=== PATIENT | male | born 1985 | race Two or more races ===

== ENCOUNTER 2020-08-29 01:44 | Emergency (ER) | payer OTHER ==
[~2020-08-29] VITALS: Ht 172.7 cm; Wt 79.8 kg
[2020-08-29] MEDS ORDERED: MORPHINE SULFATE 4 MG/ML SYR/VIAL IV ONE (02:15)
[2020-08-29] MEDS ORDERED: ONDANSETRON HCL 4 MG/2 ML VIAL IV ONE (02:15)
[2020-08-29] MEDS ORDERED: SODIUM CHLORIDE 0.9% 1,000 ML IV ONE (02:15)
[2020-08-29] MEDS ORDERED: cefTRIAXone 1GM/50ML D5W 50 ML IV ONE (03:00)
[2020-08-29] MEDS ORDERED: NEOMYCIN-BACITRACIN-POLYM UNITDOSE PKG TOP OINT TOP ONE ×5 (03:00→04:00)
[2020-08-29] MEDS ORDERED: ACETAMINOPHEN 325 MG TAB PO ONE (03:00)
[2020-08-29] MEDS ORDERED: TETANUS-DIPTH-ACEL PERTUSSIS 0.5ML SYR Tdap IM ONE (03:30)
[2020-08-29 04:44] VITALS: BP 140/85
[2020-08-29 04:59] LABS: Alcohol, Urine < 3.0 mg/dL (0-10); Amphetamine Screen, Urine NEGATIVE (NEGATIVE); Barbiturate Scree,Urine NEGATIVE (NEGATIVE); Benzodiazephine Screen, Urine NEGATIVE (NEGATIVE); Cannabinoid Screen, Urine NEGATIVE (NEGATIVE); Cocaine Screen, Urine NEGATIVE (NEGATIVE); Opiate Scree,Urine NEGATIVE (NEGATIVE); Phencyclidine Screen, Urine NEGATIVE (NEGATIVE)
== END 2020-08-29 06:05 | disposition home or self-care (01) ==
LOC: EDBD 01:44 → ER 01:44
DX: T22.251A Burn of second degree of right shoulder, initial encounter (principal); T20.27XA Burn of second degree of neck, initial encounter; X16.XXXA Contact with hot heating appliances, radiators and pipes, initial encounter; Y93.89 Activity, other specified; Y92.89 Other specified places as the place of occurrence of the external cause; Y99.8 Other external cause status
CPT/HCPCS: 16020; 80307; 90471; 90715; 96361; 96365; 96366; 99284; J0696; J7030

== ENCOUNTER 2020-09-02 06:45 | Emergency (ER) | payer OTHER ==
[~2020-09-02] VITALS: Ht 172.7 cm; Wt 83.9 kg
[2020-09-02 07:15] VITALS: BP 144/93
== END 2020-09-02 08:06 | disposition home or self-care (01) ==
LOC: ER 06:45
DX: T22.051D Burn of unspecified degree of right shoulder, subsequent encounter (principal); X08.8XXD Exposure to other specified smoke, fire and flames, subsequent encounter